=== PATIENT | male | born 1970 | race Caucasian/White ===

== ENCOUNTER → 2024-01-29 03:47 | Outpatient (CLI) | payer BC, SELFPAY ==
--- NOTE | 2024-01-29 | DI.NM_ITS ---
Exam(s) NM HEPATOBILIARY CCK GRP EXAM: NM HEPATOBILIARY CCK GRP CLINICAL HISTORY: FATTY FOOD INTOLERANCE K90.49 ? GALLBLADDER DYSFUNCTION. TECHNIQUE: Injected dose: 5 mCi Tc-99 mebrofenin Initial dynamic images: 60 minutes Post-Gallbladder fillin.5mcg CCK intravenously over a 15min infusion. Addition images: 20 minute dynamic during CCK administration. COMPARISON: No exams were available for comparison FINDINGS: There is normal uptake and excretion of radiopharmaceutical by the liver and activity seen within the gallbladder lumen starting at 20 minutes post injection. Radiopharmaceutical activity is also seen down the CBD and into the duodenal C-loop and left upper quadrant jejunal loops in rapid fashion. In response to CCK infusion there is a 95 % ejection fraction demonstrated by the gallbladder, well w ithin normal limits. IMPRESSION: Negative-normal study. There is no evidence of obstruction of the cystic duct and there is no evidence of gallbladder dysfun ction.
--- NOTE | 2024-01-29 | DI.US_ITS ---
Exam(s) US ABDOMEN EXAM: US ABDOMEN CLINICAL HISTORY: ABD PAIN R10.9 TECHNIQUE: Ultrasound of complete upper abdomen performed using standard protocol. COMPARISON: No exams were available for comparison FINDINGS: There is no ascites evident. LIVER: Liver is mildly hyperechoic indicating an element of steatosis. There are no hepatic lesions evident nor obvious dilatation of intrahepatic ducts. GALLBLADDER/BILIARY: There are no gallstones. No gallbladder wall edema nor pericholecystic fluid. The common hepatic duct isnot dilated, measuring 3-4mm at the level of maxwell hepatis. PANCREAS: There is no evidence of pancreatic mass nor dilatation of the pancreatic duct. SPLEEN: The spleen is not enlarged and there are no intrasplenic lesions evident. KIDNEYS:Kidneys exhibit normal size with no evidence of solid mass, calculus, nor hydronephrosis. No cortical cysts evident. ABDOMINAL AORTA: There is no evidence of abdominal aortic aneurysm. IVC: Normal diameter where visualized. IMPRESSION: 1. No evidence of cholelithiasis nor dilatation of the biliary tree. 2. Liver is somewhat hyperechoic indicating element of steatosis. There no discrete focal hepatic l esions. 3. No other significant ultrasound findings and no evidence of ascites. DATA REPOSITORY:
== END ==
PROVIDERS: PCP Family Medicine; Visit Provider Family Medicine
DX: K90.49 Malabsorption due to intolerance, not elsewhere classified (principal); R10.9 Unspecified abdominal pain
CPT/HCPCS: 78227; 76700